=== PATIENT | male | born 1990 | race Two or more races ===

== ENCOUNTER 2016-08-26 00:44 | Emergency (ER) | payer SELFPAY ==
[~2016-08-26] VITALS: Ht 149.9 cm; Wt 83.9 kg
[2016-08-26] MEDS ORDERED: ALBU2.5V5 NEB (01:19)
[2016-08-26] MEDS ORDERED: PROAIR HFA8.5 GM INH (01:19)
--- NOTE | 2016-08-26 01:19 | PHYS DOC ---
Past Medical History Past Medical History: Asthma, Diabetes-Type II Past Surgical History: No Surgical History Alcohol Use: None Drug Use: None Adult General Chief Complaint Chief Complaint: ASTHMA HPI HPI Patient is a 26 year old male who presents with complaint of shortness of breath. Patient states that he is currently traveling cross country from [place] to [place] as he is currently moving to that state. Patient states that he ran out of his albuterol and nebulizer solution while in route and is currently having shortness of breath. Patient states that he normally takes albuterol as needed for symptoms. Patient states he does not take any other medications. He states that his symptoms are typical when he is out of his medication. Patient has not had any fevers, chest pain, or productive cough associated with his symptoms. The patient states that he otherwise feels well and that the main reason he came to the emergency department was because he needed a prescription for medication and he needed a breathing treatment. The patient came to the emergency department by EMS who administered a breathing treatment prior to arrival which she stated helped. Review of Systems Review of Systems Constitutional: Denies fever or chills [] Eyes: Denies change in visual acuity, redness, or eye pain [] HENT: Denies nasal congestion or sore throat [] Respiratory: Shortness of breath, denies cough [] Cardiovascular: Denies chest pain or edema [] GI: Denies abdominal pain, nausea, vomiting, bloody stools or diarrhea [] : Denies dysuria or hematuria [] Musculoskeletal: Denies back pain or joint pain [] Integument: Denies rash or skin lesions [] Neurologic: Denies headache, focal weakness or sensory changes [] Current Medications Current Medications Current Medications Medications (Trade) Dose Ordered Sig/Jennifer Start Time Stop Time Status Last Admin Dose Admin Albuterol Sulfate (Ventolin Neb Soln) 2.5 mg 1X ONCE 08/26/16 01:30 08/26/16 01:31 DC 08/26/16 01:32 2.5 MG Allergies Allergies Allergies Coded Allergies Type Severity Reaction Last Updated Verified No Known Drug Allergies 08/26/16 No Physical Exam Physical Exam Constitutional: Alert, afebrile, no acute distress. [] HENT: Normocephalic, atraumatic, bilateral external ears normal, oropharynx moist, no oral exudates, nose normal. [] Eyes: PERRLA, EOMI, conjunctiva normal, no discharge. [] Neck: Normal range of motion, no tenderness, supple, no stridor. [] Cardiovascular: Tachycardia, regular rhythm, no murmur [] Lungs & Thorax: Nonlabored respirations, mild expiratory wheezing bilaterally, no rales [] Abdomen: Bowel sounds normal, soft, no tenderness, no masses, no pulsatile masses. [] Skin: Warm, dry, no erythema, no rash. [] Back: No tenderness, no CVA tenderness. [] Extremities: No tenderness, no cyanosis, no clubbing, ROM intact, no edema. [] Neurologic: Alert and oriented X 3, normal motor function, normal sensory function, no focal deficits noted. [] Current Patient Data Vital Signs Vital Signs Date Time Temp Pulse Resp B/P Pulse Ox O2 Delivery O2 Flow Rate FiO2 08/26/16 01:45 110 16 140/90 95 Room Air 08/26/16 00:49 97.7 97.7 EKG EKG Not performed [] Radiology/Procedures Radiology/Procedures Not performed [] Course & Med Decision Making Course & Med Decision Making Pertinent Labs and Imaging studies reviewed. (See chart for details) Patient was given an additional breathing treatment in the emergency department. Patient states that he feels well and would like to go home. Patient does not want any further testing done in the emergency department. This is not unreasonable as patient's vital signs are stable at this time. The patient was written for a prescription for albuterol solution and a pro-air inhaler. Advised follow-up in 5-7 days with primary doctor and return to emergency department for any worsening symptoms. Patient voiced understanding and in agreement with treatment plan. Dragon Disclaimer Dragon Disclaimer This electronic medical record was generated, in whole or in part, using a voice recognition dictation system. Departure Departure Impression: Primary Impression: Asthma exacerbation Disposition: HOME, SELF-CARE Condition: IMPROVED Referrals: NO PCP (PCP) Patient Instructions: Asthma, Adult Additional Instructions: Follow-up with your primary doctor in the next 5-7 days. Return to the emergency department for any worsening symptoms. Scripts Albuterol Sulfate (Albuterol Sulfate Neb Soln)2.5 Mg/3 Ml Vial.neb1 Vial NEB Q4DAYS PRN WHEEZING #50 VIAL Prov:AZUCENA PARR MD 08/26/16 Albuterol Sulfate (Proair Hfa Inhaler)8.5 Gm Hfa.aer.ad2 Puff INH Q4-6HRS PRN SHORTNESS OF BREATH #1 INHALER Ref 0 Prov:AZUCENA PARR MD 08/26/16 AZUCENA PARR MD Aug 26, 2016 01:19
[2016-08-26] MEDS ORDERED: ALBUTEROL SULFATE 2.5 MG/3 ML NEBU. NEB ONE (01:30)
[2016-08-26 01:45] VITALS: BP 140/90
== END 2016-08-26 01:57 | disposition home or self-care (01) ==
LOC: ER 00:44
DX: J45.901 Unspecified asthma with (acute) exacerbation (principal); E11.9 Type 2 diabetes mellitus without complications; R00.0 Tachycardia, unspecified
CPT/HCPCS: 94640; 99283-25